=== PATIENT | female | born 1995 | race Caucasian/White ===

== ENCOUNTER 2021-04-02 09:54 | Emergency (ER) | payer BC, OTHER ==
[~2021-04-02] VITALS: Ht 160 cm; Wt 108.9 kg
== END 2021-04-02 12:48 | disposition home or self-care (01) ==
LOC: ER1 09:54
DX: Z23 Encounter for immunization (principal); U07.1 COVID-19; J45.909 Unspecified asthma, uncomplicated; K21.9 Gastro-esophageal reflux disease without esophagitis; Z90.89 Acquired absence of other organs; Z88.0 Allergy status to penicillin; Z79.899 Other long term (current) drug therapy
CPT/HCPCS: 71045; 99284; M0243